=== PATIENT | male | born 1990 | race Caucasian/White ===

== ENCOUNTER 2018-04-16 23:25 | Emergency (ER) | payer SELFPAY ==
[~2018-04-16] VITALS: Ht 177.8 cm; Wt 90.7 kg
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
[2018-04-16 23:33] VITALS: BP 128/78
[2018-04-16 23:40] VITALS: BP 128/78
--- NOTE | 2018-04-16 23:40 | NUR ---
ED Nurse Note: Pt walked out unit with [employer] officer. pt is AO x 4times, VSS, on room air no distress. DC ainstruction given to officer.
== END 2018-04-16 23:40 ==
LOC: EMR 23:35
DX: Z02.89 Encounter for other administrative examinations (principal); S00.81XA Abrasion of other part of head, initial encounter; Y04.2XXA Assault by strike against or bumped into by another person, initial encounter; Y92.89 Other specified places as the place of occurrence of the external cause
CPT/HCPCS: 99283